=== PATIENT | male | born 1970 | race Caucasian/White ===

== ENCOUNTER 2017-12-03 09:23 | Emergency (ER) | payer MEDICAID ==
--- NOTE | 2017-12-03 11:04 | ED Physician Documentation ---
History of Present Illness - Stated complaint Stated Complaint: RT THIGH SWOLLEN - Chief complaint Chief Complaint: Ext Problem - Additonal information Additional information: hx from pt 47 male sore to inner R thigh hx MRSA abscess no fever many ab allergies Review of Systems Skin: reports: Lesions PD PAST MEDICAL HISTORY - Past Medical History Past Medical History: Yes Cardiovascular: High cholesterol - Past Surgical History Past Surgical History: Yes Ortho: Rotator cuff repair, Shoulder arthroplasty, Other Derm: Skin grafts - Present Medications Home Medications: Ambulatory Orders Medication Instructions Recorded Confirmed Atorvastatin [Lipitor] 40 mg PO DAILY 12/03/17 Clindamycin [Cleocin] 300 mg PO Q6H 7 Days capsule 12/03/17 Meloxicam [Mobic] 15 mg PO DAILY 12/03/17 - Allergies Allergies/Adverse Reactions: Allergies Allergy/AdvReac Type Severity Reaction Status Date / Time cephalexin [From Keflex] Allergy Hives Verified 12/03/17 09:32 ciprofloxacin [From Cipro] Allergy Unknown Verified 12/03/17 09:32 clarithromycin [From Biaxin] Allergy marybeth Verified 12/03/17 09:34 johnsons erythromycin base Allergy Anaphylaxis Verified 12/03/17 09:32 Penicillins Allergy Hives Verified 12/03/17 09:32 Sulfa (Sulfonamide Allergy Nausea Verified 12/03/17 09:32 Antibiotics) tetracycline Allergy marybeth Verified 12/03/17 09:33 johnsonvahid - Social History Does the pt smoke?: Yes Smoking Status: Current every day smoker Does the pt drink ETOH?: No Does the pt have substance abuse?: No - Immunizations Immunizations are current?: Yes PD ED PE NORMAL - Vitals Vital signs reviewed: Yes - General General: Alert and oriented X 3 - Neck Neck: Supple, no meningeal sign - Cardiac Cardiac: RRR - Respiratory Respiratory: No respiratory distress, Clear bilaterally - Extremities Extremities: Other (approx 4 cm diameter patch of erythema and induration upper meidal right thigh - no fluctuance or head, on bedisde sono no abscess pocket just inflammed tissue) Results - Vitals Vitals: Vital Signs - 24 hr 12/03/17 09:27 Temperature 36.5 C Heart Rate 114 H Respiratory 16 Rate Blood Pressure 138/92 H O2 Saturation 98 Oxygen O2 Source Room air Departure - Departure Disposition: 01 Home, Self Care Clinical Impression: Cellulitis Qualifiers: Site of cellulitis: extremity Site of cellulitis of extremity: lower extremity Laterality: right Qualified Code(s): L03.115 - Cellulitis of right lower limb Instructions: ED Infec Skin Cellulitis Prescriptions: Clindamycin [Cleocin] 300 mg PO Q6H 7 Days capsule Comments: Clindamycin in not on your allergy list and will cover MRSA. It can cause GI upset though so please take a probiotic or eat yogurt with live cultures This infection may still organzie into an abscess and need draining so if it gets worse or come to a head please see you PMD or come back to the ED
[2017-12-03 11:24] VITALS: BP 132/94
== END 2017-12-03 11:15 | disposition home or self-care (01) ==
LOC: ED 09:23
DX: L03.115 Cellulitis of right lower limb (principal); E78.00 Pure hypercholesterolemia, unspecified; F17.200 Nicotine dependence, unspecified, uncomplicated; Z88.0 Allergy status to penicillin; Z88.2 Allergy status to sulfonamides
CPT/HCPCS: 99283

== ENCOUNTER 2018-07-18 12:04 | Emergency (ER) | payer MEDICAID ==
[2018-07-18 13:58] LABS: BILIRUBIN,URINE NEGATIVE (NEGATIVE); GLUCOSE, URINE (UA) NEGATIVE (NEGATIVE); KETONES,URINE (UA) NEGATIVE (NEGATIVE); LEUKOCYTE ESTERASE, URINE NEGATIVE (NEGATIVE); NITRITE,URINE NEGATIVE (NEGATIVE); OCCULT BLOOD,URINE NEGATIVE (NEGATIVE); PH,URINE 7.5 PH (5.0-7.5); PROTEIN,URINE NEGATIVE (NEGATIVE); UROBILINOGEN,URINE 0.2 (NORMAL) E.U./dL (NORMAL)
--- NOTE | 2018-07-18 13:59 | ED Physician Documentation ---
PD HPI MALE - Stated complaint Stated Complaint: MALE - Chief complaint Chief Complaint: General - History obtained from History obtained from: Patient - History of Present Illness Timing - onset: Yesterday Timing - duration: Days (2) Timing - details: Abrupt onset Associated symptoms: Scrotal swelling (started with red spot and swelling lower scrotum yesterday and it has gotten much bigger overnight. Has had staph abscesses in the past that have progressed quickly. He does Hibiclens washes regularly.). No: Dysuria, Urinary frequency PD HPI MALE CONTRIB FACTORS: No: Exposed to STD Similar symptoms before: Diagnosis (staph abscesses in different areas in the past. No scrotal process before.) Recently seen: Not recently seen Review of Systems Constitutional: denies: Fever, Chills, Myalgias GI: denies: Nausea, Vomiting, Diarrhea : denies: Dysuria, Frequency Skin: reports: Lesions PD PAST MEDICAL HISTORY - Past Medical History Cardiovascular: High cholesterol Respiratory: None Neuro: None Endocrine/Autoimmune: None - Past Surgical History Past Surgical History: Yes Ortho: Rotator cuff repair, Shoulder arthroplasty, Other Derm: Skin grafts - Present Medications Home Medications: Ambulatory Orders Medication Instructions Recorded Confirmed Atorvastatin [Lipitor] 40 mg PO DAILY 12/03/17 Clindamycin [Cleocin] 300 mg PO Q6H 7 Days capsule 12/03/17 Meloxicam [Mobic] 15 mg PO DAILY 12/03/17 Cetirizine HCl 10 mg PO DAILY #15 tablet 07/18/18 Sulfamethox/Trimeth 800/160 1 each PO BID #14 tablet 07/18/18 [Bactrim Ds 800/160] - Allergies Allergies/Adverse Reactions: Allergies Allergy/AdvReac Type Severity Reaction Status Date / Time cephalexin [From Keflex] Allergy Hives Verified 07/18/18 12:31 ciprofloxacin [From Cipro] Allergy Unknown Verified 07/18/18 12:31 clarithromycin [From Biaxin] Allergy marybeth Verified 07/18/18 12:31 chang erythromycin base Allergy Anaphylaxis Verified 07/18/18 12:31 Penicillins Allergy Hives Verified 07/18/18 12:31 Sulfa (Sulfonamide Allergy Nausea Verified 07/18/18 12:31 Antibiotics) tetracycline Allergy marybeth Verified 07/18/18 12:31 chang - Social History Does the pt smoke?: Yes Smoking Status: Current every day smoker Does the pt drink ETOH?: No Does the pt have substance abuse?: No - Immunizations Immunizations are current?: Yes PD ED PE NORMAL - Vitals Vital signs reviewed: Yes - General General: Alert and oriented X 3, No acute distress, Well developed/nourished - Cardiac Cardiac: RRR, No murmur - Respiratory Respiratory: Clear bilaterally - Abdomen Abdomen: Normal bowel sounds, Soft, Non tender, Non distended - Male Male : Other (penis is normal. No inguinal nodes. The scrotum has normal feel of testicles and bedside U/S shows normal testicles bilaterally. Lower to the left testicle is swelling of the scrotal tissue and an abscess just in the scrotal wall, about 1.5 cm fluid with surrounding inflammation. No noted air. The palpation of the area is red with swelling and tenderness and feeling of fluctuance lowest part of scrotal sac. ) - Rectal Rectal: Deferred - Back Back: No CVA TTP - Derm Derm: Warm and dry Results - Vitals Vitals: Vital Signs - 24 hr 07/18/18 07/18/18 07/18/18 12:29 13:48 14:18 Temperature 36.1 C L 36.9 C Heart Rate 91 92 81 Respiratory 15 20 18 Rate Blood Pressure 182/94 H 166/108 H 145/92 H O2 Saturation 97 100 97 07/18/18 17:07 Temperature Heart Rate 74 Respiratory 14 Rate Blood Pressure 140/88 H O2 Saturation 98 Oxygen O2 Source Room air - Labs Labs: Microbiology 07/18/18 16:05 Wound Culture - Preliminary Skin - Abscess Laboratory Tests 07/18/18 13:50 Urine Color YELLOW Urine Clarity CLEAR Urine pH 7.5 Ur Specific [place] 1.010 Urine Protein NEGATIVE Urine Glucose (UA) NEGATIVE Urine Ketones NEGATIVE Urine Occult Blood NEGATIVE Urine Nitrite NEGATIVE Urine Bilirubin NEGATIVE Urine Urobilinogen 0.2 (NORMAL) Ur Leukocyte Esterase NEGATIVE Ur Microscopic Review NOT INDICATED Urine Culture Comments NOT INDICATED Procedures - Abscess I&D (location) left scrotal sac Preparation: Confirmed with ultrasound, Chlorhexadine, Lidocaine 1%, With epi Incision: Incised with scalpel, Purulent drainage, Irrigated, Packed, Culture obtained Other: Pt tolerated well, Dressing applied, Antibiotic prescribed PD MEDICAL DECISION MAKING - ED course Complexity details: considered differential (he is having quick progression of abscess, with history of staph infections in the past, and has allergies to several meds. He says he can take Sulfa and Clinda with Benadryl. very allergic to tetracycline. I felt an initial dose Vanco would be appropriate. ), d/w patient Departure - Departure Disposition: 01 Home, Self Care Clinical Impression: Abscess of scrotal wall Condition: Stable Record reviewed to determine appropriate education?: Yes Instructions: ED Abscess IandD Prescriptions: Cetirizine HCl 10 mg PO DAILY #15 tablet Sulfamethox/Trimeth 800/160 [Bactrim Ds 800/160] 1 each PO BID #14 tablet Comments: Warm soaks or moist towels to the abscess area a few times a day. Leave the packing wick in place for a couple of days. Bactrim oral antibiotic twice daily for the next week. Cetirizine daily to reduce itchiness from it. Add Benadryl if needed. Recheck abscess in 2-3 days if not considerably better. Return if worsening. Discharge Date/Time: 07/18/18 17:10
[2018-07-18 14:05] LABS: CLARITY,URINE CLEAR (CLEAR)
[2018-07-18] MEDS: VANCOMYCIN INJ 1 GM in SODIUM CHLORIDE 0.9% 500 ML IV STA (15:01)
[2018-07-18] MEDS: SULFAMETH/TRIMETH DS 800/160 MG TABLET PO STA (15:02)
[2018-07-18] MEDS: diphenhydrAMINE INJ 50 MG/ML VIAL IVP STA (15:03)
[2018-07-18] MEDS: KETOROLAC 15 MG/ML VIAL IVP STA (15:03)
[2018-07-18] MEDS: LIDOCAINE MPF 1%-EPI 1:200000 30 ML VIAL SUBQ STA (16:09)
[2018-07-18 17:08] VITALS: BP 140/88
== END 2018-07-18 17:10 | disposition home or self-care (01) ==
LOC: ED 12:04
DX: N49.2 Inflammatory disorders of scrotum (principal); Z86.19 Personal history of other infectious and parasitic diseases; Z88.1 Allergy status to other antibiotic agents; Z88.0 Allergy status to penicillin; F17.200 Nicotine dependence, unspecified, uncomplicated
CPT/HCPCS: 55100; 81003; 87070; 87205; 96365; 96366; 96375; 99283; 99284; A9270; J1200; J3370; 81001; 87086

== ENCOUNTER 2018-09-05 11:16 | Emergency (ER) | payer MEDICAID ==
[2018-09-05 11:40] VITALS: BP 167/106
[2018-09-05 12:11] LABS: BILIRUBIN,URINE NEGATIVE (NEGATIVE); CLARITY,URINE CLEAR (CLEAR); GLUCOSE, URINE (UA) NEGATIVE (NEGATIVE); KETONES,URINE (UA) NEGATIVE (NEGATIVE); LEUKOCYTE ESTERASE, URINE NEGATIVE (NEGATIVE); NITRITE,URINE NEGATIVE (NEGATIVE); OCCULT BLOOD,URINE NEGATIVE (NEGATIVE); PROTEIN,URINE NEGATIVE (NEGATIVE); UROBILINOGEN,URINE 0.2 (NORMAL) E.U./dL (NORMAL)
--- NOTE | 2018-09-05 13:11 | Ultrasound Report ---
Reason: pain, reddened, swollen since 299 Procedure Date: 09/05/2018 Accession Number: [id number] / [id number] Procedure: US - Testicle w/Doppler CPT Code: FULL RESULT: EXAM: SCROTAL ULTRASOUND EXAM DATE: 09/05/2018 12:17 PM. CLINICAL HISTORY: Pain, reddened, swollen since 299. COMPARISON: None available. TECHNIQUE: Real-time scanning was performed with static images obtained. Color-flow images were utilized. FINDINGS: Right: Testis: 4.8 x 2.1 x 2.6 cm. Normal size and echotexture. No mass, calcification, or abnormal blood flow. Epididymis: 0.6 x 0.6 x 0.9 cm. Normal size and echotexture. No mass or abnormal blood flow. There is an epididymal head cyst with incomplete septation measuring 1.5 x 1.5 x 2.1 cm. Hydrocele: None. Varicocele: None. Left: Testis: 4.8 x 2.5 x 2.7 cm. Normal size and echotexture. No mass, calcification, or abnormal blood flow. Epididymis: 0.9 x 0.6 x 1.1 cm. Normal size and echotexture. No mass or abnormal blood flow. Hydrocele: None. Varicocele: None. Other: Scrotal skin thickening is present. No drainable collections are demonstrated. IMPRESSION: 1. There is scrotal skin thickening. 2. No acute abnormality in the testicles. RADIA
--- NOTE | 2018-09-05 13:44 | ED Physician Documentation ---
PD HPI WOUND RECHECK - Stated complaint Stated Complaint: MALE - Chief complaint Chief Complaint: Wound - Histroy obtained from History obtained from: Patient - History of Present Illness Location: Other (Scrotum) Timing - onset: How many hours ago (9) Pain level max: 6 Pain level now: 5 Associated symptoms: Redness, Swelling. No: Fever, Drainage Similar symptoms before: Treatment Recently seen: Not recently seen - Additional information Additional information: 48-year-old male with history of high cholesterol and hidradenitis suppurativa (Had multiple surgery of his axilla) here with complaint of redness and tenderness of his scrotal area which started at 3:00 this morning. Patient stated he was here for I&D With packing of the area 7 weeks ago related to his hidradenitis. Patient is concerned that this may be a recurrence. Patient denies any trauma, travel, discharge or urinary symptoms. Review of Systems Ten Systems: 10 systems reviewed and negative Constitutional: reports: Reviewed and negative. denies: Fever, Chills Eyes: reports: Reviewed and negative Cardiac: reports: Reviewed and negative Respiratory: reports: Reviewed and negative GI: reports: Reviewed and negative. denies: Abdominal Pain, Nausea, Vomiting, Constipation, Diarrhea : reports: Testicular pain, Reviewed and negative. denies: Dysuria, Frequency, Hesitancy, Unable to Void, Incontinent, Hematuria, Discharge, Testicular mass Skin: reports: Reviewed and negative. denies: Rash Musculoskeletal: reports: Reviewed and negative. denies: Back pain Neurologic: denies: Generalized weakness Immunocompromised: reports: Reviewed and negative PD PAST MEDICAL HISTORY - Past Medical History Past Medical History: Yes Cardiovascular: High cholesterol Respiratory: None Neuro: None Endocrine/Autoimmune: None Other Past Medical History: Hidradenitis Suppurativa - Past Surgical History Past Surgical History: Yes Ortho: Rotator cuff repair, Shoulder arthroplasty, Other Derm: Skin grafts - Present Medications Home Medications: Ambulatory Orders Medication Instructions Recorded Confirmed Meloxicam [Mobic] 15 mg PO DAILY 12/03/17 09/05/18 RX: Atorvastatin [Lipitor] 40 mg PO DAILY 12/03/17 09/05/18 RX: Atorvastatin Calcium 40 mg PO 09/05/18 RX: Clindamycin HCl [Clindamycin 300 mg PO Q6H #28 capsule 09/05/18 300MG CAP] buPROPion [Wellbutrin Sr] 100 mg PO BID 09/05/18 09/05/18 - Allergies Allergies/Adverse Reactions: Allergies Allergy/AdvReac Type Severity Reaction Status Date / Time cephalexin [From Keflex] Allergy Hives Verified 07/18/18 12:31 ciprofloxacin [From Cipro] Allergy Unknown Verified 07/18/18 12:31 clarithromycin [From Biaxin] Allergy marybeth Verified 07/18/18 12:31 johnsonvahid erythromycin base Allergy Anaphylaxis Verified 07/18/18 12:31 Penicillins Allergy Hives Verified 07/18/18 12:31 Sulfa (Sulfonamide Allergy Rash Verified 09/05/18 11:41 Antibiotics) tetracycline Allergy marybeth Verified 07/18/18 12:31 johnsonvahid - Social History Does the pt smoke?: Yes Smoking Status: Current every day smoker Does the pt drink ETOH?: No Does the pt have substance abuse?: No - Immunizations Immunizations are current?: Yes PD ED PE NORMAL - Vitals Vital signs reviewed: Yes - General General: Alert and oriented X 3, No acute distress, Well developed/nourished - Neck Neck: Supple, no meningeal sign - Cardiac Cardiac: RRR, No murmur - Respiratory Respiratory: Clear bilaterally - Abdomen Abdomen: Normal bowel sounds, Soft, Non tender, Non distended - Male Male : Other (Patient left scrotum area is mildly erythematous with tenderness to touch. This area is hard or thickened and there is no fluctuance nor drainage.The left is slightly bigger than the right Circumcised penis without any drainage.) - Derm Derm: Normal color, Warm and dry, No rash, Other (Bilateral axilla with multiple old incisional scars related to patient's I&D and surgery for hydradenitis.) - Extremities Extremities: No deformity - Neuro Neuro: Alert and oriented X 3 - Psych Psych: Normal mood, Normal affect Results - Vitals Vitals: Vital Signs - 24 hr 09/05/18 11:34 Temperature 36.6 C Heart Rate 118 H Respiratory 20 Rate Blood Pressure 167/106 H O2 Saturation 96 Oxygen O2 Source Room air - Labs Labs: Laboratory Tests 09/05/18 12:00 Urine Color YELLOW Urine Clarity CLEAR Urine pH 7.0 Ur Specific [place] 1.010 Urine Protein NEGATIVE Urine Glucose (UA) NEGATIVE Urine Ketones NEGATIVE Urine Occult Blood NEGATIVE Urine Nitrite NEGATIVE Urine Bilirubin NEGATIVE Urine Urobilinogen 0.2 (NORMAL) Ur Leukocyte Esterase NEGATIVE Ur Microscopic Review NOT INDICATED Urine Culture Comments NOT INDICATED PD MEDICAL DECISION MAKING - ED course Complexity details: reviewed results, re-evaluated patient, considered differential (Hidradenitis, abscess, cellulitis, epididymitis, torsion), d/w patient ED course: 1200 Patient in no acute distress and nontoxic-appearing. Patient agreed to urinalysis and ultrasound of his testicles. 1339 patient inform of test results of his urine ultrasound. Patient agreed to be discharged on clindamycin. He will follow-up with his primary doctor for reevaluation and referral to a urologist and [employer] police [employer]. Departure - Departure Disposition: Home, Self Care Clinical Impression: Skin infection, Hidradenitis, Scrotal pain Condition: Stable Instructions: ED Staph Infec Abx Tx Only Prescriptions: RX: Clindamycin HCl [Clindamycin 300MG CAP] 300 mg PO Q6H #28 capsule Comments: Take the antibiotic clindamycin as prescribed. You may take [id number] Tylenol or Motrin for pain. 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 If worse return to the emergency room. Discharge Date/Time: 09/05/18 13:50
== END 2018-09-05 13:50 | disposition home or self-care (01) ==
LOC: ED 11:16
DX: L08.9 Local infection of the skin and subcutaneous tissue, unspecified (principal); L73.2 Hidradenitis suppurativa; N50.82 Scrotal pain; E78.00 Pure hypercholesterolemia, unspecified; F17.200 Nicotine dependence, unspecified, uncomplicated
CPT/HCPCS: 76870; 81001; 81003; 87086; 93975; 99283

== ENCOUNTER 2019-02-21 21:08 | Emergency (ER) | payer MEDICAID | END 2019-02-21 21:57 | disposition left against medical advice (07) | LOC: ED 21:08 | DX: Z53.21 Procedure and treatment not carried out due to patient leaving prior to being seen by health care provider (principal) ==